=== PATIENT | female | born 1955 | race Caucasian/White ===

== ENCOUNTER 2022-10-17 21:01 | Emergency (ER) | payer OTHER ==
[~2022-10-17] VITALS: Ht 152.4 cm; Wt 88.0 kg
[2022-10-17] MEDS ORDERED: OZEMPIC1 MG/0.71 SUB-Q (21:53)
[2022-10-17] MEDS ORDERED: LEVOTHYROXINE50 MC1 PO (21:54)
[2022-10-17] MEDS ORDERED: PREDNISONE20 MG PO (21:54)
[2022-10-17] MEDS ORDERED: OMEPRAZOLE20 MG PO (21:55)
[2022-10-17] MEDS ORDERED: GABAPENTIN100 MG PO (21:55)
[2022-10-17] MEDS ORDERED: HYDROCODON-ACE1 EA14 PO (21:55)
[2022-10-17] MEDS ORDERED: CYCLOBENZAPRINE10 MG PO (22:03)
[2022-10-18 02:30] VITALS: BP 116/65
== END 2022-10-18 02:35 | disposition home or self-care (01) ==
LOC: ED 21:01
DX: T74.21XA Adult sexual abuse, confirmed, initial encounter (principal); S09.90XA Unspecified injury of head, initial encounter; M54.50 Low back pain, unspecified; Y08.89XA Assault by other specified means, initial encounter; E03.9 Hypothyroidism, unspecified; Z79.899 Other long term (current) drug therapy
CPT/HCPCS: 70450; 72080; 99285-25; A9270